=== PATIENT | female | born 1985 | race Caucasian/White ===

== ENCOUNTER 2020-08-02 22:32 | Emergency (ER) | payer OTHER ==
[~2020-08-02] VITALS: Ht 167.6 cm; Wt 59.1 kg
[2020-08-02 23:25] LABS: HEMATOCRIT 39.4 % (36.0-47.0); HEMOGLOBIN 12.5 g/dl (12.0-15.5); MEAN CORPUSCULAR HEMOGLOBIN 28.9 pg (27.0-33.0); MEAN CORPUSCULAR HGB CONC 31.7 g/dl (32.0-36.5); MEAN CORPUSCULAR VOLUME 91.2 fl (80.0-96.0); PLATELET COUNT, AUTOMATED 395 10^3/uL (150-450); RED BLOOD COUNT 4.32 10^6/uL (4.00-5.40); WHITE BLOOD COUNT 12.1 10^3/uL (4.0-10.0)
[2020-08-02 23:51] LABS: HCG, SERUM QUALITATIVE NEGATIVE (NEGATIVE)
[2020-08-02 23:58] LABS: AMPHETAMINES LEVEL URINE NEGATIVE (NEGATIVE); BARBITURATES URINE NEGATIVE (NEGATIVE); BENZODIAZEPINES URINE NEGATIVE (NEGATIVE); CANNABINOIDS URINE NEGATIVE (NEGATIVE); COCAINE METABOLITE URINE NEGATIVE (NEGATIVE); METHADONE URINE NEGATIVE (NEGATIVE); OPIATES URINE NEGATIVE (NEGATIVE); PHENCYCLIDINE URINE NEGATIVE (NEGATIVE)
[2020-08-03 00:04] LABS: ACETAMINOPHEN LEVEL < 2.0 UG/ML (10.0-30.0); ALBUMIN 3.8 GM/DL (3.2-5.2); ALT/SGPT 43 U/L (12-78); BILIRUBIN,DIRECT < 0.1 MG/DL (0.0-0.2); BLOOD UREA NITROGEN 17 MG/DL (7-18); CALCIUM LEVEL 8.7 MG/DL (8.5-10.1); CARBON DIOXIDE LEVEL 27 MEQ/L (21-32); CHLORIDE LEVEL 106 MEQ/L (98-107); CREATININE FOR GFR 0.59 MG/DL (0.55-1.30); ETHYL ALCOHOL (ETHANOL) 0.021 % (0.000-0.010); GLOMERULAR FILTRATION RATE > 60.0 (>60); GLUCOSE, FASTING 78 MG/DL (70-100); POTASSIUM SERUM 4.1 MEQ/L (3.5-5.1); SALICYLATE LEVEL 3.2 MG/DL (5.0-30.0); SODIUM LEVEL 138 MEQ/L (136-145); TOTAL PROTEIN 7.4 GM/DL (6.4-8.2)
[2020-08-03 00:55] VITALS: BP 111/78
[2020-08-03 01:13] LABS: BILIRUBIN,TOTAL < 0.1 MG/DL (0.2-1.0)
== END 2020-08-03 00:57 | disposition home or self-care (01) ==
LOC: M ED 22:32
DX: F43.0 Acute stress reaction (principal); Z88.2 Allergy status to sulfonamides

== ENCOUNTER 2020-10-17 15:59 | Emergency (ER) | payer OTHER ==
[~2020-10-17] VITALS: Ht 167.6 cm; Wt 59.4 kg
[2020-10-17] MEDS ORDERED: BOOSTRIX/ADACEL VACCINE (DIPHTH/PERTUSS/ACELL/TETANUS) 0.5ML SYR IM ONE (17:00)
--- NOTE | 2020-10-17 17:50 | REP ---
INDICATION: puncture through lateral hand. COMPARISON: None. TECHNIQUE: Four views of the left hand. FINDINGS: Four views of the left hand demonstrate normal bones, joints, and soft tissues. No fracture or subluxation is seen. No opaque foreign body noted. There is a bone island in the proximal end of the 2nd metacarpal noted incidentally. IMPRESSION: Negative left hand radiographs . <Electronically signed by Ulisses Castaneda > 10/17/20 [id number]
[2020-10-17] MEDS ORDERED: CEPH500T PO (18:02)
[2020-10-17 18:14] VITALS: BP 117/65
== END 2020-10-17 16:13 | disposition home or self-care (01) ==
LOC: M ED 15:59
DX: S61.432A Puncture wound without foreign body of left hand, initial encounter (principal); W26.8XXA Contact with other sharp object(s), not elsewhere classified, initial encounter; Y92.9 Unspecified place or not applicable; Y93.9 Activity, unspecified; Y99.9 Unspecified external cause status; R51.9 Headache, unspecified; F41.9 Anxiety disorder, unspecified; F33.9 Major depressive disorder, recurrent, unspecified; Z88.2 Allergy status to sulfonamides; Z23 Encounter for immunization

== ENCOUNTER 2021-02-04 09:14 | Emergency (ER) | payer OTHER ==
[~2021-02-04] VITALS: Ht 167.6 cm; Wt 59.0 kg
[~2021-02-04 09:14] MED LIST: CEPH500T PO
[2021-02-04] MEDS ORDERED: IBUP200T45 PO (09:25)
[2021-02-04] MEDS ORDERED: NS 1,000 ML IV ONE (11:05)
[2021-02-04] MEDS ORDERED: IBUPROFEN 600MG TAB PO ONE (11:20)
[2021-02-04 11:27] LABS: BASO # 0.1 10^3/uL (0.0-0.2); BASO % 0.3 % (0.0-1.0); EOS % 0.1 % (0.0-3.0); HEMATOCRIT 37.7 % (36.0-47.0); HEMOGLOBIN 12.4 g/dl (12.0-15.5); LYMPH # 0.7 10^3/uL (1.5-5.0); LYMPH % 4.7 % (24.0-44.0); MEAN CORPUSCULAR HGB CONC 32.9 g/dl (32.0-36.5); MEAN CORPUSCULAR VOLUME 91.1 fl (80.0-96.0); MONO # 0.8 10^3/uL (0.0-0.8); MONO % 5.8 % (2.0-8.0); NEUTROPHILS # 12.7 10^3/uL (1.5-8.5); NEUTROPHILS % 88.5 % (36.0-66.0); PLATELET COUNT, AUTOMATED 276 10^3/uL (150-450); RED BLOOD COUNT 4.14 10^6/uL (4.00-5.40); WHITE BLOOD COUNT 14.4 10^3/uL (4.0-10.0)
[2021-02-04 11:47] LABS: BLOOD UREA NITROGEN 7 MG/DL (7-18); CALCIUM LEVEL 8.4 MG/DL (8.5-10.1); CARBON DIOXIDE LEVEL 27 MEQ/L (21-32); CHLORIDE LEVEL 103 MEQ/L (98-107); GLOMERULAR FILTRATION RATE > 60.0 (>60); GLUCOSE, FASTING 102 MG/DL (70-100); POTASSIUM SERUM 3.8 MEQ/L (3.5-5.1); SODIUM LEVEL 135 MEQ/L (136-145)
[2021-02-04 11:51] LABS: HCG, SERUM QUALITATIVE NEGATIVE (NEGATIVE)
[2021-02-04 12:04] LABS: RSV AMPLIFICATION NEGATIVE (NEGATIVE)
[2021-02-04] MEDS: GASTROGRAFIN SOLUTION 30ML PO SCH ×2 (12:30→13:05)
[2021-02-04] MEDS ORDERED: ISOVUE-370 76% 100ML VIAL As Ordered ONE (13:46)
--- NOTE | 2021-02-04 14:08 | REP ---
INDICATION: difuse abd pain, fever. COMPARISON: None. TECHNIQUE: Helical scanning is acquired following the intravenous injection of 100 mL of Isovue 370. Oral contrast was also administered. 3 mm axial images re-formatted. Coronal and sagittal MPR images are provided. FINDINGS: Digital preliminary manager policy radiograph shows a normal bowel gas pattern. There is minimal linear platelike atelectasis in the right lower lobe posteriorly. The lung bases are otherwise clear on axial CT images. The liver and the spleen are normal in size homogeneous in texture. There is a tiny accessory splenule. Normal adrenal glands are observed. No abnormality is noted in the pancreas or the gallbladder. No biliary dilation is seen. The kidneys enhance symmetrically and are morphologically intact. No hydronephrosis is seen. A normal appendix is seen posterior to the cecum in the right lower quadrant. There is a small calcific density within the lumen of the transverse colon. Question un digested tablet. Small bowel loops are unremarkable. Pelvic CT images demonstrate no evidence of uterine or ovarian mass. No adenopathy is seen. Urinary bladder is intact. No abdominal wall defect or bony destructive lesion is appreciated. IMPRESSION: No acute abdominal or pelvic CT abnormality. Normal appendix seen. <Electronically signed by Ulisses Castaneda > 02/04/21 [id number]
[2021-02-04 16:52] VITALS: BP 110/67
== END 2021-02-04 17:23 | disposition home or self-care (01) ==
LOC: M ED 09:14
DX: R19.7 Diarrhea, unspecified (principal); Z88.1 Allergy status to other antibiotic agents; Z88.2 Allergy status to sulfonamides
CPT/HCPCS: 74177; 80047; 80048; 81001; 84703; 85025; 87631; 96360; 99284; Q9963; Q9967

== ENCOUNTER → 2025-05-19 | Outpatient (CLI) | payer OTHER ==
[~2025-05-19] MED LIST changes: +IBUP200T46 PO
== END ==
LOC: M WHC 08:15
PROVIDERS: ATTEND Internal Medicine
DX: N64.4 Mastodynia (principal); R92.333 Mammographic heterogeneous density, bilateral breasts
CPT/HCPCS: 76642; 77066; G0279